=== PATIENT | female | born 1985 | race Hispanic/Latino ===

== ENCOUNTER 2018-02-11 08:28 | Outpatient (CLI) | payer OTHER | END 2018-02-11 08:29 | disposition home or self-care (01) | LOC: BICMAMMO 08:28 | PROVIDERS: ATTEND Family Medicine | DX: N64.4 Mastodynia (principal) | CPT/HCPCS: 77066; G0279 ==

== ENCOUNTER 2019-06-10 12:20 | Outpatient (CLI) | payer OTHER ==
--- NOTE | 2019-06-10 14:02 | MMO ---
Bilateral MAMMO Bilat Diag [facility]. CLINICAL HISTORY: Patient is 33 years old and is seen for diagnostic exam. The patient has no family history of breast cancer. The patient has no personal history of cancer. VIEWS: The views performed were: bilateral craniocaudal with tomosynthesis; bilateral mediolateral oblique with tomosynthesis; and bilateral mediolateral with tomosynthesis. FILMS COMPARED: The present examination has been compared to prior imaging studies performed at [facility] on 02/11/2018 and 06/10/2019. MAMMOGRAM FINDINGS: The breasts are heterogeneously dense, which could obscure a lesion on mammography. There are no suspicious masses, suspicious calcifications, or new areas of architectural distortion. There are no mammographic or sonographic abnormalities to explain the patient's breast pain. The patient is referred back to her clinician. Negative imaging findings should not preclude biopsy if clinical findings are suspicious. IMPRESSION: THERE IS NO MAMMOGRAPHIC EVIDENCE OF MALIGNANCY. THE RESULTS OF THIS EXAM WERE SENT TO THE PATIENT. ACR BI-RADS Category 1 - Negative MAMMOGRAPHY NOTE: 1. A negative mammogram report should not delay a biopsy if a dominant of clinically suspicious mass is present. 2. Approximately 10% to 15% of breast cancers are not detected by mammography. 3. Adenosis and dense breasts may obscure an underlying neoplasm. Reported by: ADITHYA ROSALES MD Electonically Signed: [id number]
--- NOTE | 2019-06-10 14:15 | ULT ---
LIMITED LEFT BREAST ULTRASOUND: 06/10/19 PROVIDED CLINICAL HISTORY: Right retroareolar redness and pain. FINDINGS: Limited sonographic interrogation was performed of the left breast in the retroareolar region. Multip le dilated ducts are demonstrated without evidence for intraductal mass. There is no evidence for a p arenchymal mass or evidence for a parenchymal fluid collection to suggest abscess. IMPRESSION: BIRADS 1: Negative Routine annual screening mammography (for women over age 40). Negative imaging findings should not preclude further evaluation of a clinically suspicious area. The patient is referred back to her clinician. POS: OFF
== END 2019-06-10 12:21 | disposition home or self-care (01) ==
LOC: BICMAMMO 12:20
PROVIDERS: ATTEND Family Medicine
DX: N64.4 Mastodynia (principal)
CPT/HCPCS: 77066; G0279

== ENCOUNTER 2019-07-20 07:02 | Outpatient (CLI) | payer OTHER ==
--- NOTE | 2019-07-20 09:22 | ULT ---
TRANSABDOMINAL AND TRANSVAGINAL PELVIC ULTRASOUND WITH HERNANDEZ-SCALE AND COLOR-FLOW AND SPECTRAL DOPPLER IMAGING: HISTORY: Pelvic mass. FINDINGS: The uterus measures 9.2 x 6.3 x 4.5 cm without focal mass or endometrial fluid. The endometrium measu res 18 mm in thickness. The right ovary is not visualized. The left ovary measures 12.8 x 12.3 x 6.9 cm and demonstrates flow. There is a large, complex, cystic mass arising from the left ovary, measuring 8.5 x 7.6 x 7.3 cm. No free fluid is seen. IMPRESSION: Large, complex, cystic left ovarian mass measuring 8.5 x 7.6 x 7.3 cm. Gynecologic consultation is re commended. POS: OFF
--- NOTE | 2019-07-20 09:28 | ULT ---
ULTRASOUND ABDOMEN COMPLETE: 07/20/2019 7:34 a.m. HISTORY: A 33-year-old female with abdominal mass inferior to the umbilical. FINDINGS: The gallbladder has normal wall thickness and has no evidence of gallstones or sludge. The hepatic e chogenicity is normal. The kidneys have normal echogenicity, and there is no hydronephrosis. There is no splenomegaly. There is no abdominal aortic aneurysm. No free fluid is identified. The inferi or vena cava is visualized. The pancreas is visualized, although ultrasound is relatively insensitiv e for pancreatic pathology compared to CT and MRI. There is no biliary dilation. The common duct ca liber is 3 mm. There is a complex cystic mass inferior and to the left of the umbilicus, corresponding to the palpab le lump. The largest cystic component measures approximately 10 x 8.5 x 7 cm, has a wall thickness of approximately 0.3 cm, and has internal contents that have low-intermediate echogenicity diffusely. I t has a 1 x 0.7 cm hyperechoic, non-shadowing mural nodule. This large cystic mass abuts the dome of the bladder. Abutting this large cystic component, there are two smaller cystic components, each of t hem measure approximately 3.5 cm in diameter and are mostly anechoic. One of them has a fluid-fluid l evel intermediate-high echogenicity layer of material in the dependent portion, which may represent a blood-fluid level. The origin of this overall complex cystic mass is uncertain but one possibility i s from the left ovary. IMPRESSION: 1. Multiloculated, complex, cystic mass in the lower abdominal cavity. 2. Recommend CT abdomen and pelvis. 3. No other abnormality in the rest of the upper abdomen. jn [] POS: CET
== END 2019-07-20 07:03 | disposition home or self-care (01) ==
LOC: SCSULT 07:02
PROVIDERS: ATTEND Family Medicine
DX: R19.09 Other intra-abdominal and pelvic swelling, mass and lump (principal)
CPT/HCPCS: 76700; 76856

== ENCOUNTER 2019-07-30 13:25 | Outpatient (CLI) | payer OTHER ==
--- NOTE | 2019-07-30 15:39 | CT ---
CT abdomen with and without contrast CT pelvis with and without contrast: DATE: 07/30/2019 HISTORY: 33-year-old female with complex left adnexal cystic mass. FINDINGS: At the upper left pelvic inlet, there is a large, complex solid and cystic mass. This includes multip le cystic components. The largest cystic component is centered at midline, and measures 12.5 x 9 x 11 cm. The second largest cystic component is located superior to that within the mid abdominal cavit y centered to the left of midline, measuring 9.5 x 8 x 7.5 cm. There is enhancing solid multiloculated lobular tissue between the cystic components. Near the center between the multiple cys tic components and solid component, there is a small focus of fat density measuring approximately 1.5 x 1.5 x 1 cm. Not identified on the recent ultrasound, located more inferiorly within the anterior portion of the r ight pelvic cavity, there is a well-circumscribed 6 x 6.5 x 5.5 cm mass which is predominantly fat density, contains soft tissue density material, and contains several calcific density. One of the simone cific densities has the morphology of a tooth. Tiny amount of free fluid in the cul-de-sac. Urinary bladder is nearly empty, anteriorly displaced and compressed by the right-sided teratoma and by the huge cystic lesion. No retroperitoneal, mesenteric, stacy hepatis, or iliac chain lymphadenopathy. Abdominal aorta, kidneys, adrenals, pancreas, and spleen, are normal. 2 tiny focal h ypodensities in the dome of the liver. One is in the right lobe, hepatic segment 8, and the other is in the left lobe hepatic segment 4A. Both are slightly less than 1 cm in size and too small to def initively characterize. Perhaps there are tiny cysts. Lung bases are clear. No small bowel dilation. No signs of colonic diverticulitis. Normal appendix. 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 2) a huge multicystic and solid mass occupying much of the pelvic cavity and left lower quadrant of t he abdominal cavity suspicious for ovarian neoplasm such as cystadenoma or cystadenocarcinoma. 3) within the solid component of the left ovarian mass, there is a small 1.5 cm fat density which cou ld represent a small left ovarian dermoid tumor in addition to other type of neoplasm. 4) recommend SENIOR BUSINESS CONSULTANT consultation.
== END 2019-07-30 13:26 | disposition home or self-care (01) ==
LOC: BICCT 13:25
PROVIDERS: ATTEND Family Medicine
DX: N83.8 Other noninflammatory disorders of ovary, fallopian tube and broad ligament (principal); R19.04 Left lower quadrant abdominal swelling, mass and lump; D39.8 Neoplasm of uncertain behavior of other specified female genital organs
CPT/HCPCS: 74178

== ENCOUNTER 2019-09-22 07:36 | Outpatient (CLI) | payer OTHER ==
--- NOTE | 2019-09-22 07:50 | RAD ---
2 views of the chest: 09/22/2019 COMPARISON: None HISTORY: Shortness of breath FINDINGS: Lungs are clear. Heart and mediastinal contours are within normal limits. IMPRESSION: No acute findings.
== END 2019-09-22 07:37 | disposition home or self-care (01) ==
LOC: BICRAD 07:36
DX: R06.02 Shortness of breath (principal)
CPT/HCPCS: 71046

== ENCOUNTER 2020-10-17 22:52 | Observation (INO) | payer OTHER ==
[2020-10-17] MEDS ORDERED: Ketorolac Tromethamine 30 MG/ML VIAL ONE (23:03)
[2020-10-17] MEDS ORDERED: Morphine 4 MG/ML VIAL ONE ×2 (23:03→23:51)
[2020-10-17] MEDS ORDERED: Ondansetron PF 4 MG/2 ML Vial ONE (23:03)
[2020-10-17 23:38] LABS: #Basophils 0.1 thou/uL (0.0-0.2); #Eosinphils 0.4 thou/uL (0.0-0.7); #Lymphocytes 2.8 thou/uL (1.20-3.40); #Monocytes 0.8 thou/uL (0.11-0.59); #Neutrophils 6.6 thou/uL (1.40-6.50); %Basophils 0.7 % (0.0-1.0); %Eosinophils 4.2 % (0.0-10.0); %Monocytes 7.1 % (0.0-10.0); %Neutrophils 62.1 % (42.0-75.0); Hemoglobin 13.4 g/dL (12.0-16.0); Mean Corpuscular HGB CONC 33.8 g/dL (32.0-36.0); Mean Corpuscular Hemoglobin 31.3 pg (27.0-31.0); Mean Corpuscular Volume 92.7 fL (78.0-98.0); Mean Platelet Volume 8.9 fL (7.4-10.4); Platelet Count 246 thou/uL (130-400); RBC Distribution Width 10.9 % (11.5-14.5); Red Blood Cell (RBC) Count 4.28 mill/uL (4.20-5.40); White Blood Cell (WBC) Count 10.6 thou/uL (4.8-10.8)
[2020-10-17 23:54] LABS: Bacteria/HPF None Seen HPF (None Seen); Bilirubin Negative (Negative); Blood, Urine 2+ (Negative); Clarity Clear (Clear); Glucose, Urine (Dipstick) Normal (Negative); Ketone, Urine Negative (Negative); Leukocyte Negative Leu/uL (Negative); Nitrite Negative (Negative); Protein, Urine (Dipstick) 30 mg/dL (Neg-Trace); RBC/HPF Greater than 50 HPF (0-3); Specific Gravity, Urine 1.023 (1.002-1.036); Urobilinogen Normal mg/dL (Less than 2); pH, Urine 6.5 (5.0-9.0)
[2020-10-17 23:58] LABS: Pregnancy Test - Urine (BHCG) Negative (Negative); Pregu Control Background? CLEAR/WHITE (CLR/WHITE); Pregu Control Bar Appear? YES (CONTROL BAR); Specific Gravity 1.023 (1.002-1.036)
[2020-10-18 00:02] LABS: ALT (SGPT) 15 U/L (8-55); AST (SGOT) 15 U/L (5-34); Albumin 4.6 g/dL (3.5-5.0); Alkaline Phosphatase 97 U/L (40-110); Anion Gap 15 mmol/L (10-20); BUN (Urea Nitrogen) 18 mg/dL (7.0-18.7); Bilirubin, Total 0.3 mg/dL (0.2-1.2); Calc. Creatinine Clearance 0 mL/min (70-130); Calcium 9.3 mg/dL (7.8-10.44); Carbon Dioxide 25 mmol/L (22-29); Chloride 101 mmol/L (98-107); Globulin 3.4 g/dL (2.4-3.5); Glucose 96 mg/dL (70-105); Potassium 3.8 mmol/L (3.5-5.1); Sodium 137 mmol/L (136-145)
[2020-10-18] MEDS ORDERED: Lidocaine 2 gm/D5W 500 ml 500 ML ONE (00:23)
[2020-10-18] MEDS ORDERED: Levofloxacin 500 mg/D5W 100 ml Premix Bag ONE (01:59)
[2020-10-18] MEDS ORDERED: Morphine 4 MG/ML VIAL ONE (02:01)
[2020-10-18] MEDS ORDERED: Ondansetron PF 4 MG/2 ML Vial ONE ×2 (02:01→08:36)
[2020-10-18 03:19] VITALS: BMI 24.7
[2020-10-18 03:30] LABS: SARS-CoV-2 NAA Rapid Test Not Detected (NotDetected)
[2020-10-18] MEDS ORDERED: Ondansetron PF 4 MG/2 ML Vial IVP PRN (03:45)
[2020-10-18] MEDS ORDERED: Ondansetron ODT 4 MG TAB SL PRN (03:45)
[2020-10-18] MEDS ORDERED: Acetaminophen 325 MG TAB PO PRN (03:45)
[2020-10-18] MEDS: Sodium Chloride 0.9% 1,000 ML IV SCH ×2 (03:59→12:53)
[2020-10-18] MEDS ORDERED: Morphine 4 MG/ML VIAL SLOW IVP PRN (04:07)
--- NOTE | 2020-10-18 06:43 | PDOC.FPRHP ---
- Allergies/Adverse Reactions Allergies Allergy/AdvReac Type Severity Reaction Status Date / Time No Known Drug Allergies Allergy Verified 10/18/20 03:52 - Home Medications Medication Instructions Recorded Confirmed Type No Known 10/18/20 10/18/20 History - History PMHx: PSHx: FHx: Social: - Vital signs BP: [] HR: [] RR: [] Tmax: [] Pox: []% on [] Wt: [] FMR H&P: Results - Labs Result Diagrams: 10/17/20 23:22 10/17/20 23:22 Lab results: WBC 10.6 thou/uL (4.8-10.8) 10/17/20 23:22 Hgb 13.4 g/dL (12.0-16.0) 10/17/20 23:22 Hct 39.7 % (36.0-47.0) 10/17/20 23:22 MCV 92.7 fL (78.0-98.0) 10/17/20 23:22 Plt Count 246 thou/uL (130-400) 10/17/20 23:22 Neutrophils % 62.1 % (42.0-75.0) 10/17/20 23:22 Sodium 137 mmol/L (136-145) 10/17/20 23:22 Potassium 3.8 mmol/L (3.5-5.1) 10/17/20 23:22 Chloride 101 mmol/L (98-107) 10/17/20 23:22 Carbon Dioxide 25 mmol/L (22-29) 10/17/20 23:22 BUN 18 mg/dL (7.0-18.7) 10/17/20 23:22 Creatinine 0.77 mg/dL (0.6-1.1) 10/17/20 23:22 Glucose 96 mg/dL (70-105) 10/17/20 23:22 Calcium 9.3 mg/dL (7.8-10.44) 10/17/20 23:22 Total Bilirubin 0.3 mg/dL (0.2-1.2) 10/17/20 23:22 AST 15 U/L (5-34) 10/17/20 23:22 ALT 15 U/L (8-55) 10/17/20 23:22 Alkaline Phosphatase 97 U/L (40-110) 10/17/20 23:22 Serum Total Protein 8.0 g/dL (6.0-8.3) 10/17/20 23:22 Albumin 4.6 g/dL (3.5-5.0) 10/17/20 23:22 Urine Ketones Negative mg/dL (Negative) 10/17/20 23:40 Urine Blood 2+ (Negative) A 10/17/20 23:40 Urine Nitrite Negative (Negative) 10/17/20 23:40 Ur Leukocyte Esterase Negative Ronnie/uL (Negative) 10/17/20 23:40 Urine RBC Greater than 50 HPF (0-3) A 10/17/20 23:40 Urine WBC 4-6 HPF (0-3) A 10/17/20 23:40 Ur Squamous Epith Cells 4-6 HPF (0-3) A 10/17/20 23:40 Urine Bacteria None Seen HPF (None Seen) 10/17/20 23:40 FMR H&P: Upper Level - Plan Date/Time: 10/18/20 0643 I, [], have evaluated this patient and agree with findings/plan as outlined by newsroom intern resident. Pertinent changes/additions are listed here.
[2020-10-18] MEDS ORDERED: Promethazine HCl 25 MG SUPP PR SCH (06:45)
--- NOTE | 2020-10-18 07:29 | CON ---
DATE OF CONSULTATION: 10/18/2020 REASON FOR CONSULT: Left flank pain. HISTORY OF PRESENT ILLNESS: Mrs. Schofield is a pleasant 35-year-old female, who is followed by Dr. Sanchez as a primary care physician, with history of kidney stones. She saw Dr. Major back in May, she presented to the emergency room at [place] due to left flank pain demonstrating left renal pelvic stone. She was scheduled for surgery, however, unable to proceed due to financial constraints. She states that she has had intermittent left flank pain since May; however, due to progressive discomfort, she presented to the emergency room early this morning. CT of the abdomen and pelvis repeated demonstrates left hydronephrosis, with distal migration of her left renal pelvic calculi to the level of L4. She has no evidence of fever, no evidence of renal insufficiency. Culture has been obtained. She is n.p.o. for cysto, stent due to intractable pain. She denies history of chills, fever, gross hematuria; however, due to flank pain rated 10/10 on the pain scale with persistent discomfort, admitted. PAST MEDICAL HISTORY: Depression, history of kidney stones. SURGICAL HISTORY: Hysterectomy, 2019. FAMILY HISTORY: Positive for heart disease, asthma, hypercholesterolemia. SOCIAL HISTORY: Negative x3. Nonsmoker. Denies illicit drug use. She is a homemaker. . REVIEW OF SYSTEMS: A 10-point review of systems as above, otherwise noncontributory. PHYSICAL EXAMINATION: VITAL SIGNS: Stable. She is afebrile. GENERAL: The patient appears to be fatigued, having nausea, Phenergan provided was also provided in addition to Zofran. HEENT: Grossly unremarkable. HEART: Regular rate. LUNGS: Clear. ABDOMEN: Soft. Midline laparotomy incision, infraumbilical, consistent with hysterectomy. No suprapubic tenderness. She does have left lower quadrant flank discomfort. : Grossly unremarkable. EXTREMITIES: No cyanosis, clubbing, or edema. NEUROLOGIC: No gross focal deficits. MUSCULOSKELETAL: Unremarkable. PSYCHIATRIC: Appears to be appropriate and intact. SKIN: No lesions. No rashes appreciated. PERTINENT LABORATORY DATA: White count 10, hemoglobin 13, platelet 246. Creatinine 0.7. UA shows 30 protein, greater than 50 rbc's, 4-6 wbc's, 4-6 epithelials, no bacteria. Culture is pending. Her COVID swab is negative. DIAGNOSTIC STUDIES: CT of the abdomen and pelvis, stone protocol, which I reviewed from dated May 23, 2020. Nonobstructing bilateral renal calculi. Per my review: Right upper to mid pole 5-6 mm left punctate renal calculi x2. There is a 5-6 mm left renal pelvic stone with no evidence of high-grade obstruction. CT with IV contrast dated October 18, 2020: Official report is pending. Per my review, there is a stable nonobstructing right 5 mm renal calculi. As there is contrast in the collecting system, it is difficult to see the left punctate renal calculi, but I can appreciate them in comparison to prior CT. There is distal migration of her previous renal pelvic stone to the level of L4 measuring about 6-7 mm with mild hydronephrosis. IMPRESSION AND PLAN: Ms. Schofield is a pleasant female with history of kidney stone, previously presented to the emergency room in May, unable to proceed with surgery, presents today with intractable pain. Multiple CT, which I reviewed, demonstrates left proximal ureteral calculi with hydronephrosis. The patient admitted for intractable pain, nausea. She is n.p.o. for cysto, left stent. Anticipate patient will be discharged after her procedure this afternoon. Continue antibiotics, IV fluids. Recent complications including but not limited to bleeding pain infection injury to adjacent organs, sepsis reviewed Job ID: [id number] [facility]
--- NOTE | 2020-10-18 07:55 | CT ---
PRELIMINARY REPORT/[facility]/EMERGENCY AFTER HOURS PROCEDURE: EXAM: CT Abdomen and Pelvis with Intravenous Contrast CLINICAL HISTORY: 35-year-old female with past medical history of urolithiasis presenting with left f lank pain. TECHNIQUE: Axial computed tomography images of the abdomen and pelvis with intravenous contrast. CONTRAST: With; ISOVUE 370,80mL COMPARISON: None provided. FINDINGS: LUNG BASES: No basilar airspace consolidation or pleural effusion. LIVER: Unremarkable. GALLBLADDER AND BILE DUCTS: Unremarkable. No calcified stone. No ductal dilation. PANCREAS: Unremarkable. SPLEEN: Unremarkable. ADRENAL GLANDS: Unremarkable. KIDNEYS, URETERS, AND BLADDER: A 5 mm obstructing stone seen in the left proximal ureter with mild to moderate left sided hydronephrosis/hydroureter and delayed left-sided nephrogram. STOMACH AND BOWEL: No obstruction. No wall thickening. No CT evidence of colitis or acute diverticuli tis. APPENDIX: No CT evidence for appendicitis. PERITONEUM: No free fluid. No free air. LYMPH NODES: No lymphadenopathy. REPRODUCTIVE: Unremarkable as visualized. VASCULATURE: No aortic aneurysm. BONES: No fracture or suspicious osseous abnormality. ABDOMINAL WALL AND SOFT TISSUES: Unremarkable. IMPRESSION: A 5 mm obstructing stone seen in the left proximal ureter with mild to moderate left side d hydronephrosis/hydroureter and delayed left-sided nephrogram. ELECTRONICALLY SIGNED BY: Humble Jimenez MD Oct 18, 2020 1:08:56 AM [facility] FINAL REPORT CT ABDOMEN AND PELVIS WITH IV CONTRAST: HISTORY: Left flank pain in a patient with urolithiasis. COMPARISON: 05/23/2020 and 07/30/2019 IMPRESSION: 1. Approximately 6 mm proximal left ureteral calculus with mild to moderate left hydronephrosis and m ild asymmetric delay in nephrogram phase of enhancement. 2. Nonobstructing bilateral renal calculi. 3. Stable subcentimeter hypodense lesions in the dome of the liver. 4. Evidence of hysterectomy. The cystic lesions as well as dermoid in the pelvis on study in 2019 are no longer visualized related to interval postoperative change. 5. Findings are in agreement with preliminary report by [facility]. Transcribed Date/Time: 10/18/2020 8:10 AM
[2020-10-18] MEDS ORDERED: Morphine 2 MG/ML VIAL SLOW IVP PRN (08:00)
[2020-10-18 08:04] VITALS: BP 147/79; TEMP 98.1
--- NOTE | 2020-10-18 08:16 | PDOC.FPRHP ---
- History of Present Illness Chief Complaint: Left Flank Pain History of Present Illness: Patient is a 35 y/o female with a PMH significant for Nephrolithiasis who presents to the ED with her for evaluation of left flank pain. Patient states that the pain began suddenly at 1999 on 10/17 and was similar to previous episodes of pain that occurred during flares of Nephrolithiasis in the past. Per the patient, she was initially scheduled to have surgery for this in the fall, however she could not afford the deductible. Since that time, patient states that she has had episodic pain similar to this, but never quite this severe. Patient has not tried any palliative factors and her pain is not relieved by position. ED Course: While in the ED, patient was administered Morphine for pain, as well as Toradol, Zofran and Levofloxacin. Patient was evaluated by Dr. Daysi Mackey (Uro), who subsequently consulted [facility] for medical management. CT ABD/Pelvis: Left Ureterolithiasis, Bilateral Nephrolithiasis - Allergies/Adverse Reactions Allergies Allergy/AdvReac Type Severity Reaction Status Date / Time No Known Drug Allergies Allergy Verified 10/18/20 03:52 - Home Medications Medication Instructions Recorded Confirmed Type No Known 10/18/20 10/18/20 History - History PMHx: Menopause PSHx: Hysterectomy FHx: Mother (DM2) Social: Denies x3. Does not work. - Review of Systems General: reports: fever/chills Eyes: denies: vision changes ENT: denies: rhinorrhea Respiratory: denies: cough, shortness of breath Cardiovascular: denies: chest pain Gastrointestinal: reports: nausea, vomiting, abdominal pain. denies: GI bleeding Genitourinary: denies: discharge Skin: denies: rashes Musculoskeletal: denies: pain - Vital signs BP: [147/79] HR: [89] RR: [20] Tmax: [98.1] Pox: [100]% on [Room Air] Wt: [65 kg] - Physical Exam Constitutional: awake, alert and oriented, other (Active pain, writhing in bed) HEENT: normocephalic and atraumatic, PERRLA, EOMI, conjunctiva clear, no scleral icterus, grossly normal vision, grossly normal hearing, normal nasal mucosa, MMM Neck: supple, FROM, trachea midline, no LAD Heart: RRR, normal S1/S2, no murmurs/rubs/gallops, pulses present, no edema Lungs: CTAB, no respiratory distress, good air movement, no rales/rhonchi, no wheezing, no retractions, other Abdomen: soft, bowel sounds present, no masses/distention -Abdomen: Mild TTP diffusely Musculoskeletal: normal structure, ROM grossly normal, other (Left-sided CVA tenderness) Neurological: no focal deficit Skin: no jaundice Psychiatric: other (Appropriately uncomfortable) FMR H&P: Results - Labs Result Diagrams: 10/17/20 23:22 10/17/20 23:22 Lab results: WBC 10.6 thou/uL (4.8-10.8) 10/17/20 23:22 Hgb 13.4 g/dL (12.0-16.0) 10/17/20 23:22 Hct 39.7 % (36.0-47.0) 10/17/20 23:22 MCV 92.7 fL (78.0-98.0) 10/17/20 23:22 Plt Count 246 thou/uL (130-400) 10/17/20 23:22 Neutrophils % 62.1 % (42.0-75.0) 10/17/20 23:22 Sodium 137 mmol/L (136-145) 10/17/20 23:22 Potassium 3.8 mmol/L (3.5-5.1) 10/17/20 23:22 Chloride 101 mmol/L (98-107) 10/17/20 23:22 Carbon Dioxide 25 mmol/L (22-29) 10/17/20 23:22 BUN 18 mg/dL (7.0-18.7) 10/17/20 23:22 Creatinine 0.77 mg/dL (0.6-1.1) 10/17/20 23:22 Glucose 96 mg/dL (70-105) 10/17/20 23:22 Calcium 9.3 mg/dL (7.8-10.44) 10/17/20 23:22 Total Bilirubin 0.3 mg/dL (0.2-1.2) 10/17/20 23:22 AST 15 U/L (5-34) 10/17/20 23:22 ALT 15 U/L (8-55) 10/17/20 23:22 Alkaline Phosphatase 97 U/L (40-110) 10/17/20 23:22 Serum Total Protein 8.0 g/dL (6.0-8.3) 10/17/20 23:22 Albumin 4.6 g/dL (3.5-5.0) 10/17/20 23:22 Urine Ketones Negative mg/dL (Negative) 10/17/20 23:40 Urine Blood 2+ (Negative) A 10/17/20 23:40 Urine Nitrite Negative (Negative) 10/17/20 23:40 Ur Leukocyte Esterase Negative Ronnie/uL (Negative) 10/17/20 23:40 Urine RBC Greater than 50 HPF (0-3) A 10/17/20 23:40 Urine WBC 4-6 HPF (0-3) A 10/17/20 23:40 Ur Squamous Epith Cells 4-6 HPF (0-3) A 10/17/20 23:40 Urine Bacteria None Seen HPF (None Seen) 10/17/20 23:40 - Radiology Interpretation CT scan - abdomen Status: report reviewed by me (See ED Course) FMR H&P: A/P - Problem List (1) Ureterolithiasis Current Visit: Yes Status: Acute Code(s): N20.1 - CALCULUS OF URETER (2) Bilateral nephrolithiasis Current Visit: Yes Status: Acute Code(s): N20.0 - CALCULUS OF KIDNEY (3) Intractable abdominal pain Current Visit: Yes Status: Acute Code(s): R10.9 - UNSPECIFIED ABDOMINAL PAIN - Plan Patient is a 35 y/o female who presented to the hospital for evaluation of left flank pain. #Ureterolithiasis, Nephrolithiasis -Known diagnosis with similar presentation in the past, regrettably unable to pursue surgical intervention previously due to financial constraints -Physical Exam notable for obvious pain and left-sided CVA tenderness -UA: Protein, Blood, RBCs, Sqams -CT ABD/Pelvis: Left-sided stone (~6 mm) with evidence of bilateral Nephrolithiasis -Currently being managed by Dr. Mackey (Uro) with TAMFMR consulted for medical management - will plan for stent placement later today -Morphine 4 mg Q4H HANNAH with Morphine 2 mg Q4H PRN for pain -Zofran and Phenergan for nausea -s/p Levofloxacin 500 mg IV in the ED - will continue per Uro -Will strain urine as tolerated to obtain stone fragments for evaluation PCP: Laura Code: Full Diet: NPO Activity: Ad maritza VTE PPx: None - patient is low risk for VTE IVF: NS @ 125 ml/hr Dispo: Patient is currently hemodynamically stable and admitted to the Oncology Floor for observation and ongoing management of Ureterolithiasis and Intractable Pain. Will continue Morphine regimen as per above and consider titration based on response. Will medically manage until planned stent placement later today and will then likely sign off on patient after coordinating with Uro. Expected LOS < 12H. FMR H&P: Upper Level - Plan Date/Time: 10/18/20 0812 I, [], have evaluated this patient and agree with findings/plan as outlined by international relations teacher resident. Pertinent changes/additions are listed here.
[2020-10-18] MEDS ORDERED: ePHEDrine 50 MG/ML VIAL ONE (08:36)
[2020-10-18] MEDS ORDERED: PROPOFOL 200 MG/20 ML VIAL ONE (08:36)
[2020-10-18] MEDS ORDERED: Dexamethasone 20 MG/5 ML VIAL ONE (08:36)
[2020-10-18] MEDS ORDERED: Lidocaine 1% PF 5 ML VIAL ONE (08:36)
[2020-10-18] MEDS ORDERED: Ketorolac Tromethamine 30 MG/ML VIAL ONE (08:36)
[2020-10-18] MEDS ORDERED: Morphine 4 MG/ML VIAL SLOW IVP SCH (09:00)
[2020-10-18] MEDS ORDERED: Iothalamate Meglumine 60% 50 ML VIAL FS ONE (09:48)
[2020-10-18] MEDS ORDERED: cefTRIAXone\\ROCEPHIN 1 GM VIAL ONE (10:00)
[2020-10-18] MEDS ORDERED: Sodium Chloride 0.9% 100 ML ONE (10:01)
[2020-10-18] MEDS ORDERED: Midazolam HCl 2 mg/2 ml Vial ONE (11:49)
[2020-10-18] MEDS ORDERED: Fentanyl 100 MCG/2 ML VIAL ONE (11:49)
[2020-10-18] MEDS ORDERED: Oxybutynin 5 MG TAB PO PRN (12:39)
[2020-10-18] MEDS ORDERED: Ketorolac Tromethamine 30 MG/ML VIAL IVP PRN (12:39)
[2020-10-18] MEDS ORDERED: Phenazopyridine HCl 97.5 MG TABLET PO PRN (12:39)
[2020-10-18] MEDS ORDERED: Acetaminophen 500 MG TAB PO PRN (12:39)
[2020-10-18] MEDS ORDERED: Bisacodyl 10 MG SUPP PR PRN (12:39)
[2020-10-18] MEDS ORDERED: hydrALAZINE 20 MG/ML VIAL SLOW IVP PRN ×2 (12:39)
[2020-10-18] MEDS ORDERED: diphenhydrAMINE 25 MG CAP PO PRN (12:39)
[2020-10-18] MEDS ORDERED: HYDROcodone/Acetaminophen 7.5/325 mg Tablet PO PRN ×2 (12:39)
[2020-10-18] MEDS ORDERED: Mag-Al 1200 mg/1200 mg/30 ML UDCUP PO PRN (12:39)
[2020-10-18] MEDS ORDERED: Sodium Chloride 0.9% 1,000 ML IV SCH (12:45)
[2020-10-18] MEDS ORDERED: Iopamidol-370 76% 500 ML 1 ML ONE (13:03)
--- NOTE | 2020-10-18 13:36 | OP ---
DATE OF PROCEDURE: 10/18/2020 PRIMARY CARE PHYSICIAN: Chrissy Sanchez MD PREOPERATIVE DIAGNOSES: 1. A 35-year-old female with left 6 to 7 mm ureteral calculi at the level of L4, left nonobstructing renal calculi x2 about 2 to 3 mm in size. 2. Right nonobstructing 5-mm right mid to upper pole renal calculi, no evidence of right hydronephrosis. 3. Intractable pain. POSTOPERATIVE DIAGNOSES: 1. A 35-year-old female with left 6 to 7 mm ureteral calculi at the level of L4, left nonobstructing renal calculi x2 about 2 to 3 mm in size. 2. Right nonobstructing 5-mm right mid to upper pole renal calculi, no evidence of right hydronephrosis. 3. Intractable pain. PROCEDURES PERFORMED: Cystoscopy, left retrograde, 6 x 24 double-J ureteral stent. ANESTHESIA: LMA. COMPLICATIONS: None apparent. DISPOSITION: To recovery room in stable condition. SPECIMEN: None. INTRAOPERATIVE FINDINGS: Corkscrew in the proximal ureter consistent with obstructing ureteral calculi with mild hydronephrosis. INDICATIONS FOR PROCEDURE AND HISTORY: Ms. Schofield is a 35-year-old female, who previously saw Dr. Major as she presented back in May due to left renal pelvic ureteral stone. She has had intermittent discomfort since then, however, unable to proceed with surgery in a timely fashion due to financial constraints. She presented to the emergency room early this morning due to intractable pain, nausea. Restaging CT demonstrated that her previous left renal pelvic stone had now migrated to the L4 with hydronephrosis. She presents for cysto, stent placement. She has been fully informed that once she has a negative urine culture, we will proceed with elective ureteroscopy and laser lithotripsy at a later date and desires to proceed with ureteral stent. Risks and complications of the procedure have been discussed with her in detail including, but not limited to: Bleeding, pain, infection, injury to adjacent organs, urosepsis, [id number] injury. All questions answered to her satisfaction and she desires to proceed. DESCRIPTION OF PROCEDURE: After an informed consent was signed, the patient was taken to the operating room, placed in a lithotomy position with the genital area prepped and draped in the usual surgical sterile fashion. A 21-Samoan cystoscope was utilized for cystoscopy, which demonstrated normal bladder mucosa. Bilateral UOs are normal orthotopic position; however, the moiety appears to be somewhat everted morphology, however, no evidence of duplicated collecting system or ureterocele. The left ureteral orifice was intubated with a 5-Samoan open-ended catheter without difficulty and a gentle retrograde pyelogram was performed demonstrating the stone at the level of the proximal ureter near L3, with proximal mild corkscrew. The stone did migrate into the renal pelvis, which I was able to see as a filling defect and a 0.035 Sensor wire was able to be placed without difficulty and a 6 x 24 double-J ureteral stent passed. She tolerated the procedure well and transported to the recovery room in stable condition. We will monitor her postop, I anticipate that she should be able to go home later this afternoon and follow up with me later to schedule ureteroscopy, laser lithotripsy at a later date. Job ID: [id number] MTDD
--- NOTE | 2020-10-18 15:12 | RAD ---
EXAM: XR IVP Retrograde PROVIDED CLINICAL HISTORY: Left ureteral calculus COMPARISON: CT 10/18/2020 FINDINGS: Spot fluoroscopic images of the abdomen are submitted, not labeled with respect to side. There is con trast material present within a dilated left renal collecting system along with a filling defect seen within the presumably left renal pelvis. Presumably left ureteral stent is subsequently demonstr ated, proximal coil of which overlies the upper pole collecting system and the distal coil of which overlies the expected location of the urinary bladder. IMPRESSION: As above.
[2020-10-18] MEDS ORDERED: Famotidine/PF 20 mg/2ml Vial SLOW IVP SCH (21:00)
[2020-10-18] MEDS ORDERED: Docusate 100 MG CAP PO SCH (21:00)
[2020-10-19] MEDS ORDERED: cefTRIAXone\\ROCEPHIN 1 GM in Sodium Chloride 0.9% 100 ML IVPB SCH (10:00)
--- NOTE | 2020-10-19 11:42 | DIS ---
DATE OF ADMISSION: 10/18/2020 DATE OF DISCHARGE: 10/18/2020 ADMITTING DIAGNOSES: Intractable left flank pain, diagnosis of left ureteral renal calculi. PROCEDURES: Cysto, left retrograde, ureteral stent placement. BRIEF HOSPITAL HISTORY: A 35-year-old female with history of left renal pelvic stone, previously followed by Dr. Major, she was advised regarding surgery, however, unable to proceed due to financial constraints. She subsequently presented to [facility] ER due to intractable left flank pain. Stone found to have migrated into the proximal ureter. A stent was placed. Surgery was uneventful. She had adequate pain control postop. Therefore, discharged home uneventfully. DISPOSITION: Home to self-care. FOLLOWUP: followup appointment in chart. Job ID: [id number] [facility]
== END 2020-10-18 17:50 | disposition home or self-care (01) ==
LOC: ERS 22:52 → INTOOBSV 10-18 02:13 → ONC 10-18 02:13
PROVIDERS: ADMIT Urology; ATTEND Urology
PROC: 0T9780Z Drainage of Left Ureter with Drainage Device, Via Natural or Artificial Opening Endoscopic (ICD-10-PCS; principal; 2020-10-18)
DX: N13.2 Hydronephrosis with renal and ureteral calculous obstruction (principal); F32.9 Major depressive disorder, single episode, unspecified; Z20.822 Contact with and (suspected) exposure to COVID-19
CPT/HCPCS: 74177; 74420; 80053; 81003; 81015; 81025; 85025; 87086; 96365; 96367; 96375; 96376; G0378; J0696; J1100; J1885; J1956; J2001; J2250; J2270; J2405; J2704; J3010; J3490; Q9967; U0002

== ENCOUNTER 2020-10-25 07:14 | Day surgery (SDC) | payer OTHER ==
--- NOTE | 2020-10-25 08:12 | RAD ---
KUB INDICATION: Abdominal pain COMPARISON: Prior CT abdomen pelvis dated October 18, 2020 and an IVP dated October 18, 2020 FINDINGS: Bowel gas: There is a moderate amount of retained stool within the colon. The bowel gas pattern is un obstructed. Lung bases: Not visualized Additional findings: There is a 6 mm calculus seen within the proximal left ureter, adjacent to an ap propriately positioned left ureteral stent. This is just slightly cephalad of the left L3 transverse process. Osseous structures: No acute osseous abnormality is demonstrated. IMPRESSION: 1. Left ureteral stent with a 6 mm proximal left ureteral calculus.
[2020-10-25] MEDS ORDERED: Levofloxacin 500 mg/D5W 100 ml Premix Bag ONE (08:35)
[2020-10-25] MEDS ORDERED: Iothalamate Meglumine 60% 50 ML VIAL FS ONE (10:23)
[2020-10-25] MEDS ORDERED: Fentanyl 100 MCG/2 ML VIAL ONE ×3 (10:32→12:55)
[2020-10-25] MEDS ORDERED: Dexamethasone 20 MG/5 ML VIAL ONE (11:40)
[2020-10-25] MEDS ORDERED: Rocuronium Bromide 10 MG/ML (10ML VIAL) ONE (11:40)
[2020-10-25] MEDS ORDERED: Lidocaine 1% PF 5 ML VIAL ONE (11:40)
[2020-10-25] MEDS ORDERED: Ondansetron PF 4 MG/2 ML Vial ONE (11:40)
[2020-10-25] MEDS ORDERED: Ketorolac Tromethamine 30 MG/ML VIAL ONE (11:40)
[2020-10-25] MEDS ORDERED: PROPOFOL 200 MG/20 ML VIAL ONE (11:40)
[2020-10-25] MEDS ORDERED: Glycopyrrolate 0.2 MG/ML 5 ML SYRINGE ONE (11:40)
[2020-10-25] MEDS ORDERED: Phenazopyridine HCl 100 MG TAB ONE (12:03)
[2020-10-25] MEDS ORDERED: Oxybutynin 5 MG TAB ONE (12:04)
--- NOTE | 2020-10-25 12:21 | RAD ---
EXAM: XR IVP Retrograde PROVIDED CLINICAL HISTORY: Left ureteral stent replacement. COMPARISON: 10/18/2020. FINDINGS/IMPRESSION: Initial firebrick layer image of the abdomen demonstrates a left ureteral stent in place. Subsequent images dem onstrate removal of the ureteral stent with placement of catheters and guidewires. Final image demonstrates replacement of the ureteral stent. Correlation with intraoperative findings is recommend ed.
[2020-10-25] MEDS ORDERED: Morphine 2 MG/ML VIAL ONE (13:44)
[2020-10-25] MEDS ORDERED: HYDROcodone/Acetaminophen 5/325 mg Tablet ONE (14:36)
--- NOTE | 2020-10-26 07:18 | OP ---
DATE OF PROCEDURE: 10/25/2020 PREOPERATIVE DIAGNOSES: 1. A 35-year-old female with history of left 6-mm proximal ureteral calculi at the level of L3-L4, status post stent. 2. Left nonobstructing 1-to 2-mm punctate renal calculi. 3. Right 5-mm mid-pole renal calculi. POSTOPERATIVE DIAGNOSES: 1. A 35-year-old female with history of left 6-mm proximal ureteral calculi at the level of L3-L4, status post stent. 2. Left nonobstructing 1-to 2-mm punctate renal calculi. 3. Right 5-mm mid-pole renal calculi. PROCEDURES PERFORMED: Cystoscopy, left rigid ureteroscopy, flexible ureteroscopy, pyeloscopy, laser lithotripsy, basket extraction of stone debris, 6 x 26 double- J ureteral stent on Dangler. ANESTHESIA: General. COMPLICATIONS: None apparent. DISPOSITION: To recovery room in stable condition. SPECIMEN: Stone fragments for chemical analysis. INDICATIONS FOR PROCEDURE AND HISTORY: Aby is a 35-year-old female, previously followed by Dr. Major, she was on surveillance for her left UPJ stone. I saw her solution analyst. She presented with intractable left flank pain and underwent stent placement. She presents today for definitive stone treatment, ureteroscopy, laser lithotripsy. Risks and complications of procedure have been discussed with the patient in detail including, but not limited to: Bleeding, pain, infection, injury to adjacent organs, urosepsis, [id number] injury. All questions answered to her satisfaction and she desired to proceed. DESCRIPTION OF PROCEDURE: After an informed consent was signed, the patient was taken to the operating room, placed in a dorsal lithotomy position with the genital area prepped and draped in the usual surgical sterile fashion. A 21-Tongan cystoscope was utilized for cystoscopy, which demonstrated normal urethra, bladder mucosa. The previously placed stent was in good position. However, it appeared somewhat short with a 24-cm stent. We retrieved this to the level of the meatus and a 0.035 Sensor wire was placed into the left upper pole. A rigid ureteroscopy was performed, I was able to pass a rigid ureteroscope to the level of the stone, however, it migrated more proximally. Therefore, I transitioned to a flexible ureteroscope with the wire in situ, 10-Tongan dual-lumen access was passed and a second safety wire of 0.035 Super Stiff was placed to the level of the upper pole. Subsequently, a 12 x 14-Tongan, 28-cm navigator was placed to the level of the stone with ease. The stone was then identified with the flexible ureteroscope. Using 200 micron laser fiber at 1.0 joules, we laser lithotripsied the stone. The stone did subsequently migrate into the left upper pole. We finished laser lithotripsing in the calyx. Stone fragments were retrieved with basket extraction. What remains are tiny fragmented debris, too small to basket. The ureter was surveyed, which demonstrated no evidence of ureteral injury or calculi of concern. A 6 x 26 double-J ureteral stent was passed without difficulty, as there was endoscopic clearance, Dangler was left in situ. All wires were removed and accounted for. The Dangler was then taped to patient's pubic symphysis with Tegaderm. She will follow up with me next for stent pull on Dangler. Job ID: [id number] [facility]
[2020-10-27 18:14] LABS: CA Oxalate Dihydrate 30 % (.); CA Oxalate Monohydrate 70 % (.); Color Brown (.); Stone Weight 12 mg (.)
== END 2020-10-25 14:56 | disposition home or self-care (01) ==
LOC: SDC 07:14
PROVIDERS: ATTEND Urology
PROC: 0TC48ZZ Extirpation of Matter from Left Kidney Pelvis, Via Natural or Artificial Opening Endoscopic (ICD-10-PCS; principal; 2020-10-25)
PROC: 0T778DZ Dilation of Left Ureter with Intraluminal Device, Via Natural or Artificial Opening Endoscopic (ICD-10-PCS; principal; 2020-10-25)
DX: N20.2 Calculus of kidney with calculus of ureter (principal); F41.9 Anxiety disorder, unspecified; F32.9 Major depressive disorder, single episode, unspecified; G47.00 Insomnia, unspecified; Z79.899 Other long term (current) drug therapy
CPT/HCPCS: 74018; 74420; 82365; 88300; J1100; J1885; J1956; J2270; J2405; J2704; J3010

== ENCOUNTER 2021-01-17 11:00 | Outpatient (CLI) | payer OTHER | END 2021-01-17 11:01 | disposition home or self-care (01) | LOC: BICULT 11:00 | PROVIDERS: ATTEND Urology | DX: N20.0 Calculus of kidney (principal) | CPT/HCPCS: 74018; 76770 ==

== ENCOUNTER 2021-01-22 08:05 | Outpatient (CLI) | payer OTHER ==
[2021-01-22] MEDS ORDERED: Iopamidol 300 61% 100 ML VIAL FS ONE (15:03)
== END 2021-01-22 08:06 | disposition home or self-care (01) ==
LOC: RAD 08:05
PROVIDERS: ATTEND Urology
DX: N20.0 Calculus of kidney (principal)
CPT/HCPCS: 74410; Q9967